=== PATIENT | female | born 1985 | race Caucasian/White ===

== ENCOUNTER 2016-07-25 13:37 | Emergency (ER) | payer MEDICAID | END 2016-07-25 17:08 | disposition home or self-care (01) | LOC: D.ER 13:37 | DX: L03.114 Cellulitis of left upper limb (principal); L02.512 Cutaneous abscess of left hand; S60.562A Insect bite (nonvenomous) of left hand, initial encounter; W57.XXXA Bitten or stung by nonvenomous insect and other nonvenomous arthropods, initial encounter; Y93.89 Activity, other specified; Y92.89 Other specified places as the place of occurrence of the external cause; F17.200 Nicotine dependence, unspecified, uncomplicated ==

== ENCOUNTER 2017-03-05 12:49 | Emergency (ER) | payer MEDICAID ==
[2017-03-05 13:16] LABS: BASOPHILS 0.6 % (0-2); EOSINOPHILS 1.6 % (0-7); HEMATOCRIT 42.5 % (36.0-48.0); HEMOGLOBIN 13.5 g/dL (12-16); IMMATURE GRANULOCYTES 0.2 % (0-5); LYMPHOCYTES 20.5 % (15-50); MCH 29.9 pg (26.0-34.0); MCHC 31.8 g/dL (31.0-37.0); MEAN PLATELET VOLUME 9.7 fL (7.4-10.4); MONOCYTES 7.2 % (2-11); NEUTROPHILS 69.9 % (40-80); RBC 4.52 10x6/uL (4.00-5.40); RDW 12.6 % (11.5-14.5); WBC 5.1 10x3/uL (4.8-10.8)
[2017-03-05 13:17] LABS: PLATELET COUNT 194 10x3/uL (130-400)
[2017-03-05 13:29] LABS: ALBUMIN 3.3 g/dL (3.4-5.0); ALKALINE PHOSPHATASE 80 U/L (46-116); ALT (SGPT) 20 U/L (10-68); BILIRUBIN - TOTAL 0.22 mg/dL (0.2-1.3); CALC OSMOLALITY 281 mosm/kg (275-300); CALCIUM 8.7 mg/dL (8.5-10.1); CARBON DIOXIDE 28.7 mmol/L (21.0-32.0); CHLORIDE - SERUM 103 mmol/L (98-107); CREATININE - SERUM 0.7 mg/dL (0.6-1.3); GLUCOSE 105 mg/dL (74-106); POTASSIUM - SERUM 4.6 mmol/L (3.5-5.1); PROTEIN - SERUM 7.9 g/dL (6.4-8.2); SODIUM 139 mmol/L (136-145); UREA NITROGEN 24 mg/dL (7-18); eGFR NON AFRICAN AMERICAN > 90 mL/min (90-120)
[2017-03-05 13:41] LABS: CHOL - HDL RATIO 4.5 ratio (2.3-4.1); CHOLESTEROL, TOTAL 140 mg/dL (0-200); CREATINE KINASE 94 UL (21-215); HDL CHOLESTEROL 31 mg/dL (32-96); LDL CHOLESTEROL 81 mg/dL (0-100); LDL-HDL RATIO 2.6 ratio (1.5-3.5); TRIGLYCERIDE 141 mg/dL (30-200); TROPONIN-I < 0.017 ng/mL (0.000-0.060)
== END 2017-03-05 15:24 | disposition home or self-care (01) ==
LOC: D.ER 12:49
PROVIDERS: Emergency Medicine
DX: J15.9 Unspecified bacterial pneumonia (principal)

== ENCOUNTER 2017-03-26 09:50 | Emergency (ER) | payer MEDICAID | END 2017-03-26 13:38 | disposition home or self-care (01) | LOC: D.ER 09:50 | DX: R06.00 Dyspnea, unspecified (principal); B34.9 Viral infection, unspecified ==

== ENCOUNTER 2017-05-30 21:08 | Emergency (ER) | payer MEDICAID ==
[2017-05-30 23:08] LABS: BASOPHILS 0.3 % (0-2); EOSINOPHILS 0.5 % (0-7); HEMATOCRIT 41.2 % (36.0-48.0); HEMOGLOBIN 13.1 g/dL (12-16); IMMATURE GRANULOCYTES 0.1 % (0-5); LYMPHOCYTES 18.6 % (15-50); MCH 28.9 pg (26.0-34.0); MCHC 31.8 g/dL (31.0-37.0); MCV 90.9 fL (80.0-100.0); MEAN PLATELET VOLUME 9.1 fL (7.4-10.4); MONOCYTES 6.8 % (2-11); NEUTROPHILS 73.7 % (40-80); PLATELET COUNT 223 10x3/uL (130-400); RBC 4.53 10x6/uL (4.00-5.40); RDW 12.9 % (11.5-14.5); WBC 7.3 10x3/uL (4.8-10.8)
[2017-05-30 23:12] LABS: HCG URINE NEGATIVE (NEGATIVE)
[2017-05-30 23:24] LABS: APPEARANCE CLEAR (CLEAR); BILIRUBIN NEGATIVE (NEGATIVE); COLOR YELLOW (YELLOW); GLUCOSE 50 mg/dL (NEGATIVE); KETONE LARGE mg/dL (NEGATIVE); NITRITE NEGATIVE (NEGATIVE); PROTEIN NEGATIVE (NEGATIVE); UROBILINOGEN NORMAL (NORMAL)
[2017-05-30 23:25] LABS: BACTERIA MODERATE /hpf (NONE SEEN); EPITHELIAL CELLS 0-5 /hpf (0-5); MUCUS >1+ /lpf (NONE SEEN); RED CELLS - URINE 0-5 /hpf (0-5); WHITE CELLS - URINE 0-5 /hpf (0-5)
[2017-05-30 23:55] LABS: ALKALINE PHOSPHATASE 69 U/L (46-116); ALT (SGPT) 24 U/L (10-68); AMYLASE - SERUM 42 U/L (25-115); BILIRUBIN - TOTAL 0.58 mg/dL (0.2-1.3); CALC OSMOLALITY 278 mosm/kg (275-300); CALCIUM 9.1 mg/dL (8.5-10.1); CHLORIDE - SERUM 100 mmol/L (98-107); CREATININE - SERUM 0.8 mg/dL (0.6-1.3); GLUCOSE 105 mg/dL (74-106); LIPASE 135 U/L (73-393); POTASSIUM - SERUM 3.8 mmol/L (3.5-5.1); PROTEIN - SERUM 8.5 g/dL (6.4-8.2); SODIUM 138 mmol/L (136-145); UREA NITROGEN 22 mg/dL (7-18); eGFR NON AFRICAN AMERICAN 87 mL/min (90-120)
== END 2017-05-31 03:45 | disposition home or self-care (01) ==
LOC: D.ER 21:08
PROVIDERS: Family Medicine
DX: R10.9 Unspecified abdominal pain (principal); K29.00 Acute gastritis without bleeding; F17.200 Nicotine dependence, unspecified, uncomplicated

== ENCOUNTER 2017-06-05 20:44 | Emergency (ER) | payer MEDICAID | END 2017-06-05 22:00 | disposition home or self-care (01) | LOC: D.ER 20:44 | DX: K21.9 Gastro-esophageal reflux disease without esophagitis (principal); K29.00 Acute gastritis without bleeding ==

== ENCOUNTER → 2018-03-12 10:30 | Outpatient (CLI) | payer MEDICAID | END | disposition home or self-care (01) | LOC: D.MRI 10:30 | DX: S83.242D Other tear of medial meniscus, current injury, left knee, subsequent encounter (principal); X58.XXXA Exposure to other specified factors, initial encounter ==

== ENCOUNTER 2019-06-03 15:01 | Emergency (ER) | payer MEDICAID ==
[~2019-06-03] VITALS: Ht 152.4 cm; Wt 63.6 kg
[2019-06-03 15:09] VITALS: Ht 152.4 cm; Wt 63.6 kg
[2019-06-03] MEDS ORDERED: BUTRANS1 EAC2 TRANSDERM (15:13)
[2019-06-03] MEDS ORDERED: TOPAMAX50 MG PO (15:14)
[2019-06-03] MEDS ORDERED: PROTONIX40 MG PO (15:14)
[2019-06-03] MEDS ORDERED: AMITRIPTYLINE100 MG PO (15:14)
[2019-06-03] MEDS ORDERED: PRISTIQ50 MG PO (15:15)
[2019-06-03] MEDS ORDERED: CARBIDOPA-LEVO1 EAC2 PO (15:15)
[2019-06-03] MEDS ORDERED: RISPERDAL4 MG PO (15:16)
[2019-06-03] MEDS ORDERED: TENORMIN25 MG PO (15:16)
[2019-06-03] MEDS ORDERED: FOLIC ACID1 MG PO (15:17)
[2019-06-03] MEDS ORDERED: ZOFRAN ODT4 MG/UDTAB PO (16:13)
[2019-06-03] MEDS ORDERED: BUTALB-APAP-CA1 EACH PO (16:13)
[2019-06-03 16:47] VITALS: BP 111/53
== END 2019-06-03 16:48 | disposition home or self-care (01) ==
LOC: D.ER 15:01
DX: R51 Headache (principal); W06.XXXA Fall from bed, initial encounter; Y93.9 Activity, unspecified; Y92.9 Unspecified place or not applicable; R01.1 Cardiac murmur, unspecified